=== PATIENT | female | born 1970 | race African-American/Black ===

== ENCOUNTER 2025-05-02 20:04 | Emergency (ER) | payer BC ==
[~2025-05-02] VITALS: Ht 167.6 cm; Wt 86.2 kg
[2025-05-02 20:07] VITALS: O2SAT 100
[2025-05-02 20:48] VITALS: BP 164/87; PULSE 62; RESP 16; TEMP 36.8; O2SAT 100
== END 2025-05-02 21:57 | disposition left against medical advice (07) ==
LOC: ER 20:04
DX: M79.604 Pain in right leg (principal)
CPT/HCPCS: 99281